=== PATIENT | male | born 1985 | race Caucasian/White ===

== ENCOUNTER 2018-03-05 22:35 | Emergency (ER) | payer OTHER ==
[2018-03-05] MEDS: oxyCODONE/APAP 5/325 1 TAB TABLET PO (23:25)
[2018-03-05] MEDS: IBUPROFEN 800 MG TABLET. PO (23:26)
== END 2018-03-05 23:56 | disposition home or self-care (01) ==
LOC: ER 23:56
DX: S09.90XA Unspecified injury of head, initial encounter (principal); M25.551 Pain in right hip; W22.09XA Striking against other stationary object, initial encounter; Y93.89 Activity, other specified; Y99.8 Other external cause status; Y92.89 Other specified places as the place of occurrence of the external cause
CPT/HCPCS: 70150; 73502; 99284